=== PATIENT | male | born 1950 ===

== ENCOUNTER 2017-08-12 06:25 | Day surgery (SDC) | payer MEDICARE ==
--- NOTE | 2017-08-06 09:57 | HP ---
HISTORY AND PHYSICAL: DATE OF PLANNED ADMISSION AND SURGERY: 08/12/17 - [facility] HISTORY OF PRESENT ILLNESS: Mr. Cain is a 67-year-old white male who is admitted with a large left hydrocele for surgical repair. I had seen Mr. Cain several years ago because of an enlarging left hydrocele. At that time, he was asymptomatic and observation was advised. On his recent visit to my office, the hydrocele seemed to have become larger and has become symptomatic interfering with his physical activities. The patient had a scrotal ultrasound in the office in May which showed an 11 cm left hydrocele. No other abnormalities were noted. There was a small right hydrocele. PAST MEDICAL HISTORY AND SYSTEM REVIEW: The patient is in good health. He has hypertension, on lisinopril 10 mg daily. He takes rosuvastatin for hyperlipidemia. The patient is known to have labile hypertension, and he gets very anxious in doctors' offices when his blood pressure is checked. He denies any cardiac or pulmonary diseases or symptoms. His past history is otherwise negative. ALLERGIES: He denies any allergies to medications. PHYSICAL EXAMINATION GENERAL: Pleasant and rather anxious white male who looks good for his age. VITAL SIGNS: Blood pressure 160/90, pulse of 90. LUNGS: Clear. HEART: Regular and rhythmic. No murmurs. ABDOMEN: Soft. No masses, no tenderness, and no CVA tenderness. EXTERNAL GENITALIA: He is circumcised. No penile lesions. There is a 12-14 cm left hydrocele that is nontender. The left testis cannot be palpated. The right testis feels normal, and there is no clinically significant hydrocele. No inguinal hernias noted. RECTAL EXAM: Shows a non-enlarged and non-suspicious prostate. IMPRESSION: 1. A symptomatic large left hydrocele. 2. Labile hypertension. PLAN: Plan is for left hydrocelectomy. I discussed the operation in detail with the patient. Some of the potential complications including hematoma and infection were discussed. The patient also understands that he will have postoperative surgical swelling that might last several weeks before it resolves. All his questions were answered. [id number]/[facility] #: [id number] MTDD
[~2017-08-12 06:25] MED LIST: Acetaminophen TAB* 325 MG PO ONE; Buffered Lidocaine 0.9% SYRIN* 5 ML/SYR SYRINGE INTRADERM ONE; Dexamethasone IV* 4 MG/ML 1 ML (4 MG) IV SLOW PU ONE; Famotidine IV* 10 MG/ML 2 ML (20 mg) IV ONE
[2017-08-12] MEDS ORDERED: Dexamethasone IV* 4 MG/ML 1 ML (4 MG) ONE (06:33)
[2017-08-12] MEDS ORDERED: ceFAZolin 2 GM PREMIX (*) 2 GM/50 ML BAG IVPB ONE (06:34)
[2017-08-12] MEDS ORDERED: Buffered Lidocaine 0.9% SYRIN* 5 ML/SYR SYRINGE ONE (06:34)
[2017-08-12] MEDS ORDERED: Famotidine IV* 10 MG/ML 2 ML (20 mg) ONE (06:34)
[2017-08-12] MEDS ORDERED: Acetaminophen TAB* 325 MG ONE (06:34)
[2017-08-12] MEDS ORDERED: Propofol* 10 MG/ML 20 ML BTL IV PUSH ONE (07:01)
[2017-08-12] MEDS ORDERED: Lidocaine 2% PF * 5 ML VIAL ONE (07:01)
[2017-08-12] MEDS ORDERED: fentaNYL* 50 MCG/ML 2 ML VIAL (100 MCG VIAL) ONE (07:03)
[2017-08-12] MEDS ORDERED: Midazolam* 1 MG/ML 2 ML VIAL (2 MG) ONE ×2 (07:03→09:03)
[2017-08-12] MEDS ORDERED: Ibuprofen TAB* 600 MG PO PRN (07:07)
[2017-08-12] MEDS ORDERED: Ondansetron INJ* 2 MG/ML VIAL IV PRN (07:07)
[2017-08-12] MEDS ORDERED: Scopolamine 1.5 mg* PATCH TRANSDERM PRN (07:07)
[2017-08-12] MEDS ORDERED: HYDROmorphone INJ* 1 MG/ML CARPUJECT SYRINGE IV PRN (07:07)
[2017-08-12] MEDS ORDERED: fentaNYL* 50 MCG/ML 2 ML VIAL (100 MCG VIAL) IV PRN (07:07)
[2017-08-12] MEDS ORDERED: oxyCODONE TAB* 5 MG TAB PO PRN (07:07)
[2017-08-12] MEDS ORDERED: HYDROcodone/ACETAMIN 5-325 MG* 1 TAB PO PRN (07:07)
[2017-08-12] MEDS ORDERED: Ketorolac INJ* 30 MG/ML 1 ML VIAL ONE (07:08)
[2017-08-12] MEDS ORDERED: Ondansetron INJ* 2 MG/ML VIAL ONE (07:08)
[2017-08-12] MEDS ORDERED: Bupivacaine 0.5% SDV PF* 30 ML VIAL ONE (07:19)
[2017-08-12 10:23] VITALS: BP 151/91
--- NOTE | 2017-08-12 10:34 | OP ---
CC: THERON Souza OPERATIVE REPORT: DATE OF OPERATION: 08/12/17 DATE OF : 54 SURGEON: Luis Bhat MD ANESTHESIOLOGIST: Dr. Hailey Harris. ANESTHESIA: General. PRE-OP DIAGNOSIS: Left hydrocele. POST-OP DIAGNOSIS: Left hydrocele. OPERATIVE PROCEDURE: 1. Left scrotal exploration. 2. Left hydrocelectomy. INDICATION FOR PROCEDURE: Mr. Cain is a 67-year-old white male who has progressive enlargement of the left hemiscrotum, which was diagnosed clinically and by ultrasound to be a large left hydrocele. This has become more symptomatic recently. Physical exam and scrotal ultrasound showed a 12 to 14 cm left hydrocele. No other abnormalities were noted. No hernia. Because of the above history and finding, surgical repair was advised and accepted. PATHOLOGY: Upon left scrotal exploration, there was a large left hydrocele containing 400 cc of hydrocele fluid. The hydrocele fluid was straw colored. The hydrocele sac was moderately thickened, but did not look abnormal and there were no lesions noted on its surface. The left testis looked normal. There were no testicular masses and no inguinal hernia noted. DESCRIPTION OF PROCEDURE: After successful general anesthesia, the patient was placed in the supine position and prepped and draped for scrotal surgery. A transverse incision was carried in the anterior left hemiscrotum. The incision was deepened through the Dartos muscle. The hydrocele sac was then identified and dissected from the overlying scrotal wall and was delivered through the incision. The hydrocele sac was then opened and the hydrocele fluid was evacuated and measured. The hydrocele sac was then incised, the spermatic cord was identified and preserved, the hydrocele sac was then partially excised in two portions, and sent for pathology. The remnant of the hydrocele sac was then everted and approximated to itself using a running locking suture of 4-0 Vicryl, achieving good hemostasis. The testis looked normal and pink, with good vascularity. All the bleeders in the scrotal wall and inside the scrotal cavity were controlled with either cautery or ligatures of 4-0 Vicryl. After achieving good hemostasis, the left testis was replaced in the scrotal cavity, making sure there was no twisting of the cord. A small Noelle drain was left in the scrotal cavity and brought out through a separate incision in the lower part of the scrotum. The drain was transfixed through the skin with 3 -0 Prolene suture. The scrotal cavity was then irrigated with saline. The scrotal incision was then closed using a running 3-0 Vicryl locking suture for the Dartos muscle and interrupted everting sutures of 4-0 Vicryl for the scrotal skin. The final results looked satisfactory. Patient tolerated the procedure well and left the operating room in good condition. The blood loss was less than 20 cc. The specimen was a portion of left hydrocele sac. All the counts were correct. [id number]/[facility] #: [id number] MTDD
[2017-08-15] MEDS ORDERED: Scopolamine PATCH Remove* 1 NOTE MISC PATCH OFF ONE (07:08)
== END 2017-08-12 10:34 | disposition home or self-care (01) ==
LOC: OR 06:25
PROVIDERS: ATTEND Urology
DX: N43.3 Hydrocele, unspecified (principal); I10 Essential (primary) hypertension; F41.9 Anxiety disorder, unspecified
CPT/HCPCS: 88302; A9270-GY; J0690; J1100; J1885; J2250; J2405; J2704; J3010